=== PATIENT | female | born 1990 | race Caucasian/White ===

== ENCOUNTER 2019-05-13 17:51 | Emergency (ER) | payer OTHER ==
[~2019-05-13] VITALS: Ht 162.6 cm; Wt 63.5 kg
[2019-05-13 18:59] LABS: PLATELET COUNT 379 K/uL (152-353)
[2019-05-13 19:20] LABS: POTASSIUM 3.8 mmol/L (3.6-5.2)
[2019-05-13 20:18] VITALS: BP 117/64; TEMP 98.4
== END 2019-05-13 20:18 | disposition home or self-care (01) ==
LOC: ED 17:51
PROVIDERS: Family Medicine
DX: I74.3 Embolism and thrombosis of arteries of the lower extremities (principal)
CPT/HCPCS: 80053; 85027; 99283